=== PATIENT | female | born 1950 | race Two or more races ===

== ENCOUNTER 2018-01-31 11:05 | Outpatient (CLI) | payer OTHER | END 2018-01-31 15:59 | disposition home or self-care (01) | LOC: RAD 11:05 | DX: I10 Essential (primary) hypertension (principal) ==

== ENCOUNTER 2018-06-16 09:56 | Outpatient (CLI) | payer OTHER | END 2018-06-16 09:59 | disposition home or self-care (01) | LOC: SONOGRAMA 09:56 | DX: E04.2 Nontoxic multinodular goiter (principal) ==

== ENCOUNTER 2019-08-07 11:49 | Outpatient (CLI) | payer OTHER | END 2019-08-07 11:59 | disposition home or self-care (01) | LOC: SONOGRAMA 11:49 | PROVIDERS: ATTEND Pathology Anatomic Pathology | DX: E04.8 Other specified nontoxic goiter (principal) ==